=== PATIENT | male | born 1985 | race Caucasian/White ===

== ENCOUNTER 2024-06-26 15:07 | Emergency (ER) | payer BC ==
[~2024-06-26] VITALS: Ht 185.4 cm; Wt 71.4 kg
[2024-06-26] MEDS ORDERED: OXYcodone (OXYCONTIN) Ext Release 15 MG TAB.SR.12H PO ONE (15:35)
[2024-06-26] MEDS ORDERED: OXYC15TA PO (15:37)
[2024-06-26] MEDS: oxyCODONE IR 5mg (immed. release) tablet PO ONE (15:47)
[2024-06-26 15:50] VITALS: BP 134/78; PULSE 84; RESP 18; TEMP 98.7; O2SAT 98
== END 2024-06-26 15:55 | disposition home or self-care (01) ==
LOC: ER 15:08
DX: S92.811A Other fracture of right foot, initial encounter for closed fracture (principal); G89.18 Other acute postprocedural pain; X58.XXXA Exposure to other specified factors, initial encounter; Y93.89 Activity, other specified; Y92.89 Other specified places as the place of occurrence of the external cause; Y99.8 Other external cause status
CPT/HCPCS: 99283; J7030